=== PATIENT | male | born 1985 | race Caucasian/White ===

== ENCOUNTER 2019-03-09 11:18 | Emergency (ER) | payer MEDICAID, MEDICARE ==
[~2019-03-09] VITALS: Ht 177.8 cm; Wt 77.0 kg
[2019-03-09] MEDS ORDERED: HALOPERIDOL 5MG TABLET PO ONE (14:15)
[2019-03-09 17:55] VITALS: BP 110/72
== END 2019-03-09 18:05 | disposition home or self-care (01) ==
LOC: ER 11:18
DX: R45.851 Suicidal ideations (principal); F20.9 Schizophrenia, unspecified; F17.200 Nicotine dependence, unspecified, uncomplicated; F31.9 Bipolar disorder, unspecified
CPT/HCPCS: 99283; J1630

== ENCOUNTER 2020-08-14 15:09 | Emergency (ER) | payer MEDICARE ==
[~2020-08-14] VITALS: Ht 172.7 cm; Wt 72.0 kg
[2020-08-14 15:30] VITALS: BP 142/88
== END 2020-08-14 17:39 | disposition home or self-care (01) ==
LOC: ER 15:09
DX: Z76.0 Encounter for issue of repeat prescription (principal); F20.9 Schizophrenia, unspecified; F31.9 Bipolar disorder, unspecified
CPT/HCPCS: 93005; 99283